=== PATIENT | female | born 1985 | race Caucasian/White ===

== ENCOUNTER 2016-06-12 12:51 | Emergency (ER) | payer OTHER ==
[2016-06-12 14:24] LABS: BUN/CREATININE RATIO 23 (0-10)
== END 2016-06-12 19:00 | disposition home or self-care (01) ==
LOC: ER1 12:51
PROVIDERS: Emergency Medicine
DX: I45.6 Pre-excitation syndrome (principal); R07.81 Pleurodynia; F17.210 Nicotine dependence, cigarettes, uncomplicated
CPT/HCPCS: 36415; 71101; 80053; 81001; 83690; 84703; 85379; 93005; 96361; 96374; 96375; 99285; J2405

== ENCOUNTER 2016-09-15 11:23 | Emergency (ER) | payer OTHER ==
[2016-09-15 12:43] LABS: HEMOGLOBIN 13.2 gm/dl (12.3-15.3); RED BLOOD COUNT 4.02 M/UL (4.00-5.10); WHITE BLOOD COUNT 8.9 K/UL (4.5-11.0)
[2016-09-15 13:06] LABS: BUN/CREATININE RATIO 18 (0-10)
== END 2016-09-15 16:08 | disposition home or self-care (01) ==
LOC: ER1 11:23
PROVIDERS: Physician Assistant
DX: O46.91 Antepartum hemorrhage, unspecified, first trimester (principal); O23.41 Unspecified infection of urinary tract in pregnancy, first trimester; Z3A.09 9 weeks gestation of pregnancy
CPT/HCPCS: 36415; 76805; 80048; 81001; 84702; 85025; 86850; 86900; 86901; 87077; 87086; 87186; 96365; 99284; J0696; J7050